=== PATIENT | male | born 1960 | race Caucasian/White ===

== ENCOUNTER 2022-02-07 17:00 | Outpatient (CLI) | payer BC, SELFPAY ==
[2022-02-07 11:06] LABS: Chloride* 101 mmol/L (96-114); Potassium* 3.8 mmol/L (3.6-5.1); Sodium* 139 mmol/L (135-149)
[2022-02-07 11:08] LABS: Cholesterol* 174 mg/dL (90-199); Creatinine* 0.8 mg/dL (0.5-1.5); Estimated Glomerular Filt Rate 101 ml/min
[2022-02-07 11:09] LABS: Blood Urea Nitrogen* 17 mg/dL (7-30); Calcium* 9.2 mg/dL (8.4-10.6); Carbon Dioxide* 29 mmol/L (20-32); Glucose* 116 mg/dL (60-115); HDL Cholesterol* 46 mg/dL (>=40); LDL Cholesterol Calculated 105 mg/dL (<100); Triglycerides* 114 mg/dL (40-149)
== END 2022-02-07 17:01 | disposition home or self-care (01) ==
PROVIDERS: PCP Internal Medicine; Visit Provider Internal Medicine
DX: Z00.00 Encounter for general adult medical examination without abnormal findings (principal); I10 Essential (primary) hypertension; E78.5 Hyperlipidemia, unspecified; R73.03 Prediabetes
CPT/HCPCS: 80048; 80061

== ENCOUNTER 2023-02-20 07:56 | Outpatient (CLI) | payer BC, SELFPAY | END 2023-02-20 07:57 | disposition home or self-care (01) | PROVIDERS: PCP Internal Medicine; Visit Provider Internal Medicine | DX: Z00.00 Encounter for general adult medical examination without abnormal findings (principal); E78.5 Hyperlipidemia, unspecified; R73.03 Prediabetes; I10 Essential (primary) hypertension; Z12.5 Encounter for screening for malignant neoplasm of prostate | CPT/HCPCS: 80048; 80061; 84153 ==

== ENCOUNTER 2023-03-06 09:32 | Outpatient (CLI) | payer BC, SELFPAY ==
--- NOTE | 2023-03-06 09:52 | W.ANESCHARGE ---
Anesthesia Charges Start Date/Time Anesthesia Start Date: 03/06/23 Anesthesia Start Time: 09:59 Stop Date/Time Anesthesia Stop Date: 03/06/23 Anesthesia Stop Time: 10:21
--- NOTE | 2023-03-06 10:23 | W.ANESCHARGE ---
Anesthesia Charges Start Date/Time Anesthesia Start Date: 03/06/23 Anesthesia Start Time: 09:59 Stop Date/Time Anesthesia Stop Date: 03/06/23 Anesthesia Stop Time: 10:21
== END 2023-03-06 09:33 | disposition home or self-care (01) ==
LOC: OP CLINIC 09:33
PROVIDERS: PCP Internal Medicine; Visit Provider Internal Medicine
DX: Z12.11 Encounter for screening for malignant neoplasm of colon (principal); K57.30 Diverticulosis of large intestine without perforation or abscess without bleeding
CPT/HCPCS: 00811; 00812; 45378; J2704

== ENCOUNTER 2024-04-01 08:28 | Outpatient (CLI) | payer OTHER, SELFPAY ==
--- OUTSIDE RECORDS SUMMARY | 2024-04-01 08:36 | XMS_ITS | Clinical Summary ---
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 50 tablet 1 07/18/2011 Active aspirin 325 mg tablet Take 1 tablet by mouth once daily with a meal. 0 08/05/2012 Active simvastatin (ZOCOR) 20 mg tabletIndications:Hyp erlipidemia LDL goal < 100 Take 1 tablet by mouth at bedtime. 90 tablet 3 12/06/2012 Active lisinopril (PRINIVIL; ZESTRIL) 20 mg tabletIndications:Hyp ertension Take 1 tablet by mouth once daily. 90 tablet 0 12/19/2014 Active Active Problems Problem Noted Date Diagnosed Date Screen for colon cancer 09/27/2012 Overview (09/27/2012): Colonoscopy 09/2012 normal repeat in 10 years Hypertension Immunizations Name Administration Dates Next Due Tdap 12/11/2007 Family History Medical History Relation Name Comments Heart Disease Father Hypertension Father Cancer-colon Maternal Aunt Cancer-colon Maternal Uncle Heart Disease Mother Cancer-colon Paternal Aunt Cancer-colon Paternal Uncle 1 Heart Disease Paternal Uncle 2 Relation Name Status Comments Father Alive Maternal Aunt Maternal Uncle Mother Alive Paternal Aunt Paternal Uncle 1 Paternal Uncle 2 Social History Tobacco Use Types Packs/Day Years Used Date Smoking Tobacco: Never Cigarettes Smokeless Tobacco: Former Chew Quit: 05/21/2010 Tobacco Cessation:Counseling Given: Yes Alcohol Use Standard Drinks/Week Comments Yes 0 (1 standard drink = 0.6 oz pur e alcohol) 2 beers every other night Sex and Gender Information Value Date Recorded Sex Assigned at Not on file Gender Identity Not on file Sexual Orientation Not on file Obstetrics History Last Filed Vital Signs Vital Sign Reading Time Taken Comments Blood Pressure 94/72 11/05/2012 8:26 AM CDT Pulse 84 11/05/2012 8:26 AM CDT Temperature 36.8 ??C (98.2 ??F) 10/23/2012 3:42 PM CD T Respiratory Rate - - Oxygen Saturation 100% 11/05/2012 8:26 AM CDT Inhaled Oxygen Concentration - - Weight 77.6 kg (171 lb) 10/23/2012 3:42 PM CDT Height 172.1 cm (5' 7.75) 08/05/2012 9:30 AM CD T Body Mass Index 26.19 08/05/2012 9:30 AM CDT Plan of Treatment Health Maintenance Due Date Last Done Comments Depression screening for age 12+ 1973 HIV for age 15-65 1976 BMI (ht and wt on same day) for age 18+ 09/06/1979 Hepatitis C screening for age 18-79 09/06/1979 Zoster (shingles) series for age 50+ (1 of 2) 09/06/2011 Lipids for age 45-75 11/05/2017 11/05/2012, 08/05/2012, 07/18/2011, Additional history exists Tetanus booster 12/10/2017 12/11/2007 Colonoscopy through age 75 09/27/2022 09/27/2012, COVID-19 vaccine series (2023- season) 2024 Influenza for age 50-64 01/20/2024 Tdap Completed 12/11/2007 Pneumococcal series for age 6-64 Aged Out No longer eligible based on patient's age to complete this topic Procedures Procedure Name Priority Date/Time Associated Diagnosis Comments LIPID PANEL W REFLEX MEASURED LDL Routine 11/05/2012 7:55 AM CDT High cholesterol from Last 3 Months or Most Recently Relevant to Health Maintenance Results * (ABNORMAL) LIPID PANEL W REFLEX MEASURED LDL (11/05/2012 7:55 AM CDT) CHOLESTEROL,TOTAL 212(H) 100 - 199 mg/dL 11/05/2012 9:[address] [facility] TRIGLYCERIDES 61 <150 mg/dL 11/05/2012 9:[address] [facility] HDL CHOLESTEROL 56 >40 mg/dL 3 9:[address] [facility] NON-HDL CHOLESTEROL 156(H) <145 mg/dl 11/05/2012 9:[address] [facility] CHOL/HDL RATIO 3.79 <4.50 11/05/2012 9:[address] [facility] LDL CHOLESTEROL 144(H) <=130 mg/dL 11/05/2012 9:[address] [facility] PATIENT STATUS FASTING 11/05/2012 9:15 AM [facility] Blood specimen (specimen) BLOOD SPECIMEN / Unknown 11/05/2012 7:55 AM CDT 11/05/2012 7:55 AM CDT Stephen Strickland MD CHEMISTRY [facility] [address] [place] [address] from Last 3 Months or Most Recently Relevant to Health Maintenance Care Teams Ornamental Machine Operator Relationship Specialty Start Date End Date PadillatelStephen MD [address] [place] [id number] PCP - General 10/02/07
== END 2024-04-01 08:29 | disposition home or self-care (01) ==
PROVIDERS: PCP Internal Medicine; Visit Provider Internal Medicine
DX: Z00.00 Encounter for general adult medical examination without abnormal findings (principal); E78.5 Hyperlipidemia, unspecified; R73.03 Prediabetes; I10 Essential (primary) hypertension; Z12.5 Encounter for screening for malignant neoplasm of prostate
CPT/HCPCS: 80048; 80061; G0103

== ENCOUNTER 2024-04-09 12:44 | Outpatient (CLI) | payer OTHER, SELFPAY ==
--- OUTSIDE RECORDS SUMMARY | 2024-04-09 12:47 | XMS_ITS | Clinical Summary ---
Author Organization [facility] Address [place], [place] [address] Care Team Providers Care Statistics Teacher Name Role Phone Stephen Strickland MD Primary [...] 84 11/05/2012 8:26 AM CDT Temperature 36.8 C (98.2 F) 10/23/2012 3:42 PM CDT Respiratory Rate - - Oxygen Saturation 100% 11/05/2012 8:26 AM CDT Inhaled Oxygen Concentration - - Weight 77.6 kg (171 lb) 10/23/2012 3:42 PM CDT Height 172.1 cm (5' 7.75) 08/05/2012 9:30 AM CD T Body Mass Index 26.19 08/05/2012 9:30 AM CDT Plan of Treatment Upcoming Encounters Date Type Department Care Team (Late st Contact Info) Description 04/09/2024 1:00 PM [employer] HAND Ancillary Procedure [facility] [address] [place] [address] Health Maintenance Due Date Last Done Comments [...] - 199 mg/dL 11/05/2012 9:15 AM CDT [facility] TRIGLYCERIDES 61 <150 mg/dL 11/05/2012 9:15 AM CDT [facility] HDL CHOLESTEROL 56 >40 mg/dL 3 9:15 AM CDT [facility] NON-HDL CHOLESTEROL 156(H) <145 mg/dl 11/05/2012 9:15 AM T [facility] CHOL/HDL RATIO 3.79 <4.50 11/05/2012 9:15 AM T [facility] LDL CHOLESTEROL 144(H) <=130 mg/dL 11/05/2012 9:15 AM T [facility] PATIENT STATUS FASTING 11/05/2012 9:15 AM T [facility] Blood specimen (specimen) BLOOD SPECIMEN / Unknown 11/05/2012 7:55 AM CDT 11/05/2012 7:55 AM CDT Stephen Strickland MD CHEMISTRY Performing Organization Address City/State/[facility] Co de Phone Number [facility] [address] [place] [address] from Last 3 Months or Most Recently Relevant to Health Maintenance Care Teams Statistics Teacher Relationship Specialty Start Date End Date PadillateStephen lizarraga MD [address] [place] [id number] PCP - General 10/02/07
== END 2024-04-09 12:45 | disposition home or self-care (01) ==
PROVIDERS: PCP Internal Medicine; Visit Provider Internal Medicine
DX: R01.1 Cardiac murmur, unspecified (principal)
CPT/HCPCS: 93306

== ENCOUNTER 2025-04-21 08:23 | Outpatient (CLI) | payer BC, SELFPAY | END 2025-04-21 08:24 | disposition home or self-care (01) | PROVIDERS: PCP Internal Medicine; Visit Provider Internal Medicine | DX: I10 Essential (primary) hypertension (principal); E78.5 Hyperlipidemia, unspecified; Z12.5 Encounter for screening for malignant neoplasm of prostate | CPT/HCPCS: 80048; 80061; G0103 ==